=== PATIENT | female | born 2000 | race Caucasian/White ===

== ENCOUNTER 2019-05-04 15:54 | Emergency (ER) | payer MEDICAID ==
[~2019-05-04] VITALS: Ht 175.3 cm; Wt 84.0 kg
[2019-05-04 16:07] VITALS: BP 133/83
[2019-05-04] MEDS ORDERED: PENI500T2 PO (17:33)
== END 2019-05-04 17:52 | disposition home or self-care (01) ==
LOC: ER 15:55
DX: J02.0 Streptococcal pharyngitis (principal); B95.0 Streptococcus, group A, as the cause of diseases classified elsewhere; Z79.899 Other long term (current) drug therapy
CPT/HCPCS: 87880; 99283